=== PATIENT | male | born 1950 | race Hispanic/Latino ===

== ENCOUNTER 2019-10-12 13:44 | Outpatient (CLI) | payer MEDICARE ==
[2019-10-12 16:13] LABS: Total Cells Counted 100 /mm3
== END 2019-10-12 13:45 | disposition home or self-care (01) ==
LOC: LAB 13:44
PROVIDERS: ATTEND Orthopaedic Surgery
DX: M00.1 Pneumococcal arthritis and polyarthritis (principal)
CPT/HCPCS: 85048; 87076; 87116; 87186; 89051